=== PATIENT | female | born 1960 | race American Indian/Alaskan Native ===

== ENCOUNTER 2017-06-15 07:49 | Day surgery (SDC) | payer BC, OTHER ==
[2017-06-15] MEDS ORDERED: ECOTRIN PO ONE (08:44)
[2017-06-15] MEDS ORDERED: BENADRYL IV ONE (08:52)
[2017-06-15] MEDS ORDERED: PEPCID IV ONE (08:53)
[2017-06-15] MEDS ORDERED: NACL 0.9% 500 ML 500 ML IV SCH (09:00)
[2017-06-15 09:39] LABS: Basophils # (Auto) 0.1 K/mm3 (0.0-0.1); Basophils % (Auto) 1.4 % (0.0-1.8); Eosinophils # (Auto) 0.2 K/mm3 (0.0-0.4); Eosinophils % (Auto) 3.7 % (0.0-4.3); Hematocrit 43.1 % (30.3-42.9); Hemoglobin 14.1 gm/dl (10.1-14.3); Lymphocytes # (Auto) 1.7 K/mm3 (1.2-5.4); Lymphocytes % (Auto) 29.9 % (13.4-35.0); Mean Corpuscular HGB Conc 33 % (30-34); Mean Corpuscular Hemoglobin 29 pg (28-32); Mean Corpuscular Volume 90 fl (79-97); Monocytes # (Auto) 0.5 K/mm3 (0.0-0.8); Monocytes % (Auto) 8.9 % (0.0-7.3); Platelet Count 285 K/mm3 (140-440); Red Cell Distribution Width 14.3 % (13.2-15.2)
[2017-06-15 09:51] LABS: INR 0.91 (0.87-1.13)
[2017-06-15 09:59] LABS: BUN/Creatinine Ratio 24; Blood Urea Nitrogen 12 mg/dL (7-17); Hemolysis Index 188
[2017-06-15] MEDS ORDERED: NITROGLYCERIN SYRINGE 0 ML ONE (10:26)
[2017-06-15] MEDS: VERSED ONE ×2 (10:41→10:51)
[2017-06-15] MEDS: SUBLIMAZE ONE ×2 (10:41→10:51)
[2017-06-15] MEDS: XYLOCAINE 2% INFILTRATI ONE ×2 (10:41→10:52)
[2017-06-15] MEDS: HEPARIN 10,000 UNITS/10 ML ONE ×2 (10:42→10:55)
[2017-06-15] MEDS: CALAN ONE ×2 (10:42→10:55)
[2017-06-15] MEDS: HEPARIN/NS 5000 UNIT/500ML(CATH LAB) 1,000 ML IR ONE ×2 (10:43→10:50)
[2017-06-15 13:45] VITALS: BP 120/60
--- NOTE | 2017-06-15 14:07 | Cardiac Catherization Report ---
INDICATION FOR PROCEDURE: The patient is a 57-year-old female with history of hypertension, obesity with atypical chest pain and abnormal stress EKG with ST depressions who was scheduled for cardiac catheterization for definitive diagnosis and treatment. The patient is aware of the procedure, potential complications, and alternatives of therapy available. DESCRIPTION OF PROCEDURE: The patient was brought to the catheterization laboratory in a fasting condition. The right wrist area and forearm thoroughly cleansed with Betadine solution and sterile drapes were applied. Sedation protocol was followed and when it was felt appropriate, the patient received IV Versed and fentanyl at 10:52 a.m. Subsequently, right radial artery puncture was made after local anesthesia using 21-gauge arterial puncture needle. A 5-[place] sheath was introduced. The patient received 5 mg of intra-arterial verapamil and 3000 units of intravenous heparin. Using multipurpose catheter, left ventriculogram was performed in MCARTHUR projection using hand injection followed by angiograms of the left coronary artery in multiple views and angiograms of the right coronary artery in MCARTHUR and DIDI projections. At the end of the procedure, catheter and sheath were removed. Good hemostasis was achieved with pressure bandage. The patient was monitored for effects of IV sedation up to 11:03 in the catheterization laboratory. She was monitored with echocardiography and O2 saturation in addition to pressure monitoring. The patient tolerated the procedure well. No untoward complications were noted. Following findings were noted. HEMODYNAMICS: 1. Aortic pressure 147/70, left ventricular pressure 150/22. No gradient across the aortic valve. Estimated ejection fraction 55%. 2. Left ventriculogram done in MCARTHUR projection showed normal sized left ventricle with normal contractility. End-diastolic and systolic volumes were normal. Only limited amount of dye was injected. Mitral regurgitation could not be evaluated. 3. Left coronary artery arises normally from left coronary cusp. There was a streak of calcium involving the inferior aspect of the proximal LAD; however, angiographically left main which is long, LAD and its branches are angiographically smooth and normal. Circumflex artery and its branch are also angiographically smooth and normal. 3. Right coronary artery dominant vessel arises normally from right coronary cusp and it is angiographically smooth and normal. FINAL IMPRESSION: 1. Normal sized left ventricle with normal contractility with mildly elevated end-diastolic pressure. 2. Mild calcification of the proximal LAD noted, otherwise angiographically smooth coronary artery is noted. 3. Right radial artery access was used and good hemostasis was achieved with pressure bandage and no untoward complications were noted. The patient tolerated the sedation well without any side effects. Findings were explained to the patient. JOB# [id number] WENDY/BILL AHUJA
--- NOTE | 2017-06-15 16:07 | Short Stay Summary ---
Short Stay Documentation Date of service: 06/15/17 - History H&P: obtained from office - Allergies and Medications Current Medications: Allergies shellfish derived Allergy (Severe, Verified 06/15/17 10:12) Anaphylaxis nifedipine [From Procardia] Adverse Reaction (Severe, Verified 06/15/17 08:43) INVOLUNTARY MUSCLE MOVEMENT Home Medications Medication Instructions Recorded Confirmed Last Taken Type Amlodipine Besylate [Norvasc] 10 mg PO DAILY 06/15/17 06/15/17 06/15/17 History 10mg Benazepril/Hydrochlorothiazide 1 tab PO DAILY 06/15/17 06/15/17 06/15/17 History [Lotensin Hct 20-25 mg Tablet] 1 Centrum Adults Tablet 1 tab PO DAILY 06/15/17 06/15/17 06/14/17 History 1 Fexofenadine HCl [Megan Allergy] 180 mg PO DAILY PRN 06/15/17 06/15/17 History 180mg Flaxseed Oil/G[place] Echo 3,6,9 1,400 mg PO DAILY 06/15/17 06/15/17 06/14/17 History 1400mg Magnesium Oxide [Magnesium] 400 mg PO DAILY 06/15/17 06/15/17 06/14/17 History 400mg - Brief post op/procedure progress note Date of procedure: 06/15/17 Pre-op diagnosis: abnormal stress test Post-op diagnosis: same Anesthesia: local Estimated blood loss: none Condition: stable - Disposition Disposition: TO HOME OR SELFCARE - Discharge Diagnoses (1) Abnormal stress test Status: Suspected Short Stay Discharge Plan Activity: advance as tolerated Wound: open to air, keep clean and dry, per your surgeon's advice Follow up with: ANA PAULA LOZADA DO [Primary Care Provider] - 7 Days Forms: CardCath PCI D/C Instructions
== END 2017-06-15 14:25 | disposition home or self-care (01) ==
LOC: CATHLABREC 07:49
PROVIDERS: ATTEND Internal Medicine
DX: I25.10 Atherosclerotic heart disease of native coronary artery without angina pectoris (principal); I10 Essential (primary) hypertension; Z88.6 Allergy status to analgesic agent; Z91.013 Allergy to seafood
CPT/HCPCS: 36415; 80048; 85025; 85610; 85730; 93005; 93010; 93458; 96374; 96375; C1894; J1200; J1644; J2250; J2930; J3010; J7040; Q9967